=== PATIENT | male | born 1960 | race African-American/Black ===

== ENCOUNTER 2017-03-03 01:11 | Emergency (ER) | payer SELFPAY ==
[~2017-03-03] VITALS: Ht 185.4 cm; Wt 100.0 kg
[2017-03-03 01:14] VITALS: BP 160/104; PULSE 96; RESP 30; TEMP 98.3; O2SAT 97
[2017-03-03] MEDS ORDERED: SODIUM CHLORIDE 0.9% FLUSH 10 ML FLUSH IVF PRN (01:30)
[2017-03-03] MEDS ORDERED: NITROGLYCERIN 2% OINT 1 GM PACKET TOPICAL ONE (01:30)
[2017-03-03] MEDS: RESP: ALBUTEROL 2.5 MG/IPRATROPIUM 0.5 MG NEB (SCH) INH (01:43)
[2017-03-03 01:49] LABS: AUTOMATED NEUTROPHIL # 4.3 TH/MM3 (1.8-7.7); BASOPHIL # 0.1 TH/MM3 (0-0.2); BASOPHIL % 1.8 % (0.0-2.0); EOSINOPHIL # 0.1 TH/MM3 (0-0.4); EOSINOPHIL % 1.4 % (0.0-4.0); HEMATOCRIT 45.1 % (39.0-51.0); HEMO FLAGS DIFF FINAL; LYMPH % 36.4 % (9.0-44.0); LYMPHOCYTE # 2.9 TH/MM3 (1.0-4.8); MEAN CELL VOLUME 84.4 FL (80.0-100.0); MEAN CORPUSCULAR HEMOGLOBIN 27.2 PG (27.0-34.0); MEAN CORPUSCULAR HGB CONC 32.3 % (32.0-36.0); MONO % 7.5 % (0.0-8.0); NEUT % 52.9 % (16.0-70.0); PLATELET COUNT 297 TH/MM3 (150-450); RED BLOOD COUNT 5.35 MIL/MM3 (4.50-5.90)
--- NOTE | 2017-03-03 01:55 | RADRPT ---
EXAM DATE/TIME: 03/03/2017 01:39 [facility] COMPARISON: No previous studies available for comparison. INDICATIONS : Short of breath. MEDICAL HISTORY : None. SURGICAL HISTORY : None. ENCOUNTER: Initial ACUITY: 1 day PAIN SCORE: Non-responsive. LOCATION: Bilateral chest FINDINGS: A single view of the chest demonstrates the lungs to be symmetrically aerated without evidence of mas s, infiltrate or effusion. The cardiomediastinal contours are unremarkable. Osseous structures are intact. CONCLUSION: Normal examination. Nicholas Meyers Jr., MD on March 03, 2017 at 1:53 Board Certified Radiologist. This report was verified electronically.
[2017-03-03 02:09] LABS: APTT (PATIENT) 29.5 SEC (24.3-30.1); PROTHROMBIN TIME - PATIENT 11.4 SEC (9.8-11.6)
[2017-03-03 02:11] VITALS: RESP 16; O2SAT 97
[2017-03-03 02:13] VITALS: BP 160/104; PULSE 97; RESP 22; O2SAT 98
[2017-03-03 02:16] LABS: ALT (GPT) 24 U/L (12-78); ANION GAP 10 MEQ/L (5-15); AST (GOT) 23 U/L (15-37); BICARBONATE 23.1 MEQ/L (21.0-32.0); BLOOD UREA NITROGEN 7 MG/DL (7-18); CHLORIDE 107 MEQ/L (98-107); GLOMERULAR FILTRATION RATE 85 ML/MIN (>89); MAGNESIUM 2.4 MG/DL (1.5-2.5); POTASSIUM 3.7 MEQ/L (3.5-5.1); SODIUM (NA) 140 MEQ/L (136-145)
[2017-03-03 02:21] LABS: ALKALINE PHOSPHATASE 69 U/L (45-117); CREATINE KINASE 288 U/L (39-308); TOTAL BILIRUBIN ADULT 0.5 MG/DL (0.2-1.0)
[2017-03-03 02:33] LABS: CKMB 3.3 NG/ML (0.5-3.6)
--- NOTE | 2017-03-03 02:47 | PD ---
HPI Chief Complaint: Respiratory Symptoms Time Seen by Provider: 01:25 Travel History International Travel<30 days: No Contact w/Intl Traveler<30days: No Traveled to known affect area: No History of Present Illness HPI The patient is a 56 year old male who presents to the [facility] emergency department with a history of sudden onset of shortness of breath after he got off work this evening. He reports that prior to getting off of work he was cleaning the kitchen with ammonia products. The patient reports that he began to have chest tightness and shortness of breath. The patient reports that he does have a history of COPD and hypertension. He has not been on any hypertensive medications for the last 2 months. The patient reports that he has not seen his primary care physician for the last 8 months. The patient reports that he smokes one pack of cigarettes per day. He reports that he last used cocaine 4 days ago. Prior to arrival, the patient was noted to have a respiratory rate reportedly in the 50s to 60s with wheezing, tripoding, and accessory muscle use. The patient was noted to be hypertensive with a systolic blood pressure 210. The patient's O2 saturation on room air at that time was 98 -99%. The patient was given one sublingual nitroglycerin which made no difference to his chest pain according to ambulance services. The patient was given aspirin 162 mg by mouth 1, Solu-Medrol 125 mg IV, and 2 albuterol nebulizer treatments en route to this facility. Upon the patient's arrival, the patient is more relaxed and able to lie back. The patient has no accessory muscle use or conversational dyspnea on arrival. The patient reports having a cough productive of green sputum that has been going on for the last week. He reports that the cough makes the pain in his chest worse. The patient The patient denies any recent fevers, neck pain, abdominal pain, vomiting, diarrhea , urinary symptoms, or neurologic symptoms. [facility] Past Medical History Narrative Medical The patient's past medical history is significant for asthma, COPD, hypertension , polysubstance abuse. Asthma: Yes COPD: Yes Diminished Hearing: No Hypertension: Yes Tetanus Vaccination: Unknown Influenza Vaccination: No Past Surgical History Narrative Surgical The patient's past surgical history is reportedly none. Surgical History: No Previous Surgery Social History Alcohol Use: Yes (daily) Tobacco Use: Yes (one pack per day) Substance Use: Yes (cocaine occasionally) Allergies-Medications (Allergen,Severity, Reaction): Coded Allergies: No Known Allergies (Unverified , 03/03/17) Reported Meds & Prescriptions Reported Meds & Active Scripts Active Doxycycline Hyclate 100 Mg Cap 100 Mg PO BID Medrol Dosepak (Methylprednisolone) 4 Mg Dspk 4 Mg PO DIRECTED Per Pharmacist direction Proair Respiclick Inh (Albuterol Sulfate) 90 Mcg/Act Aerp 2 Puff INH Q4-6H PRN Review of Systems Except as stated in HPI: all other systems reviewed are Neg General / Constitutional: No: Fever Eyes: No: Visual changes HENT: No: Headaches Cardiovascular: Positive: Chest Pain or Discomfort (chest tight), Dyspnea on exertion Respiratory: Positive: Cough, Shortness of Breath, Wheezing Gastrointestinal: No: Abdominal Pain Genitourinary: No: Dysuria Musculoskeletal: No: Pain Skin: No Rash Neurologic: No: Weakness Psychiatric: No: Depression Endocrine: No: Polydipsia Hematologic/Lymphatic: No: Easy Bruising Physical Exam Narrative General: The patient is a well-developed well-nourished male in no acute distress. Head and Neck exam: Head is normocephalic atraumatic. Eyes: EOMI, pupils are equal round and reactive to light. Nose: Midline septum with pink mucous membranes Mouth: Dentition unremarkable. Moist mucus membranes. Posterior oropharynx is not erythematous. No tonsillar hypertrophy. Uvula midline. Airway patent. Neck: No palpable lymphadenopathy. No nuchal rigidity. No thyromegaly. Cardiovascular: Sinus tachycardia in the low 100s without murmurs, gallops, or rubs. No pulse deficit to the extremities and simultaneous auscultation and palpation of his radial artery. Lungs: Soft expiratory wheezes are audible in bilateral lung hou, no rhonchi, no crackles. Abdomen: Soft, with reported tenderness on palpation of all 4 quadrants of the abdomen to the slightest touch. He reports that the abdominal pain seems to be related to his coughing. No guarding, rebound, or rigidity. Normal bowel sounds are audible. No tenderness on palpation of McBurney's point. Extremities: No clubbing, cyanosis, or edema. 2+ pulses in all 4 extremities. No calf tenderness on palpation. Back: No costovertebral angle tenderness to palpation. Neurologic Exam: Grossly nonfocal. Skin Exam: No rash noted. Intact skin that is warm and dry. Data Data Last Documented VS Vital Signs Date Time Temp Pulse Resp B/P Pulse Ox O2 Delivery O2 Flow Rate FiO2 03/03/17 02:13 97 22 160/104 98 Aerosol Mask 8 03/03/17 01:14 98.3 Orders Complete Blood Count With Diff (03/03/17:) Comprehensive Metabolic Panel (03/03/17) B-Type Natriuretic Peptide (03/03/17) Act Partial Throm Time (Ptt) (03/03/17) Prothrombin Time / Inr (Pt) (03/03/17) Magnesium (Mg) (03/03/17) Ckmb (Isoenzyme) Profile (03/03/17) Troponin I (03/03/17) Iv Access Insert/Monitor (03/03/17) Electrocardiogram (03/03/17) Ecg Monitoring (03/03/17) Oximetry (03/03/17) Oxygen Administration (03/03/17) Chest, Single Ap (03/03/17:) Sodium Chloride 0.9% Flush (Ns Flush) (03/03/17 01:30) Albuterol-Ipratropium Neb (Duoneb Neb) (03/03/17 01:30) Nitroglycerin 2% Oint (Nitroglycerin 2% (03/03/17 01:30) CKMB (03/03/17 01:40) CKMB% (03/03/17 01:40) Ct Abd/Pel W Iv Contrast(Rout) (03/03/17 02:56) Iohexol 350 Inj (Omnipaque 350 Inj) (03/03/17 04:26) Levofloxacin (Levaquin) (03/03/17 04:45) Labs Laboratory Tests Test 03/03/17 01:40 White Blood Count 8.0 TH/MM3 Red Blood Count 5.35 MIL/MM3 Hemoglobin 14.6 GM/DL Hematocrit 45.1 % Mean Corpuscular Volume 84.4 FL Mean Corpuscular Hemoglobin 27.2 PG Mean Corpuscular Hemoglobin 32.3 % Concent Red Cell Distribution Width 15.0 % Platelet Count 297 TH/MM3 Mean Platelet Volume 8.6 FL Neutrophils (%) (Auto) 52.9 % Lymphocytes (%) (Auto) 36.4 % Monocytes (%) (Auto) 7.5 % Eosinophils (%) (Auto) 1.4 % Basophils (%) (Auto) 1.8 % Neutrophils # (Auto) 4.3 TH/MM3 Lymphocytes # (Auto) 2.9 TH/MM3 Monocytes # (Auto) 0.6 TH/MM3 Eosinophils # (Auto) 0.1 TH/MM3 Basophils # (Auto) 0.1 TH/MM3 CBC Comment DIFF FINAL Differential Comment Prothrombin Time 11.4 SEC Prothromb Time International 1.0 RATIO Ratio Activated Partial 29.5 SEC Thromboplast Time Sodium Level 140 MEQ/L Potassium Level 3.7 MEQ/L Chloride Level 107 MEQ/L Carbon Dioxide Level 23.1 MEQ/L Anion Gap 10 MEQ/L Blood Urea Nitrogen 7 MG/DL Creatinine 1.09 MG/DL Estimat Glomerular Filtration 85 ML/MIN Rate Random Glucose 130 MG/DL Calcium Level 8.8 MG/DL Magnesium Level 2.4 MG/DL Total Bilirubin 0.5 MG/DL Aspartate Amino Transf 23 U/L (AST/SGOT) Alanine Aminotransferase 24 U/L (ALT/SGPT) Alkaline Phosphatase 69 U/L Total Creatine Kinase 288 U/L Creatine Kinase MB 3.3 NG/ML Troponin I LESS THAN 0.02 NG/ML B-Type Natriuretic Peptide 23 PG/ML Total Protein 7.4 GM/DL Albumin 3.8 GM/DL MDM Medical Decision Making Medical Screen Exam Complete: Yes Emergency Medical Condition: Yes Medical Record Reviewed: Yes Interpretation(s) Last Impressions Abdomen/Pelvis CT 03/03/17 0256 Signed Impressions: Service Date/Time: Friday, March 03, 2017 04:12 - CONCLUSION: Normal examination. Nicholas Meyers Jr., MD Chest X-Ray 03/03/17 0126 Signed Impressions: Service Date/Time: Friday, March 03, 2017 01:39 - CONCLUSION: Normal examination. Nicholas Meyers Jr., MD Differential Diagnosis COPD exacerbation, versus pneumonia, versus pneumothorax, versus acute coronary syndrome, versus new-onset congestive heart failure Narrative Course During the course of the patients emergency department visit, the patients history, examination, and differential diagnosis were reviewed with the patient. The patient had IV access obtained and blood work sent for analysis. The patient was placed on a ply cutter with oximetry and blood pressure monitoring. An EKG was done on arrival. The patient's EKG shows a sinus rhythm heart rate of 99, no acute ST segment elevation or depression. QRS duration is 94 ms, QTC 402 ms. The patient was initially provided nitroglycerin 1 inch the chest wall. The patient was given DuoNeb 3. The patient was given Levaquin 500 mg by mouth 1. The patients laboratory studies were reviewed and remarkable for a CBC that is within normal limits, CMP is remarkable for glucose of 130, cardiac enzymes are unremarkable, BNP is 23, PT PTT unremarkable Radiology studies were reviewed and remarkable for a chest x-ray that shows no acute abnormality. CT scan of the abdomen and pelvis shows no acute abnormality. The patient on reexamination is sleeping soundly. The Patient's O2 saturation on room air is 98-99%. The patient's repeat blood pressure is 148 systolic. The patient is encouraged to follow up with his primary care physician, to call for an appointment tomorrow. He cannot recall the name of his blood pressure medication, therefore he is instructed to make sure he follows up soon to get his blood pressure medications filled. The patient is also encouraged to avoid cocaine use and quit smoking. The patient was given a prescription for pro-air inhaler, Medrol Dosepak taper, doxycycline. The patient is resting comfortably and feels better, is alert and in no distress. The patients results and examination findings were discussed with the patient. The repeat examination is unremarkable and benign. The history, exam, diagnostic testing, and current condition do not suggest any significant pathology to warrant further testing, continued ED treatment, admission, or surgical evaluation at this point. The vital signs have been stable. The patient does not have uncontrollable pain, intractable vomiting, or other significant symptoms. The patient's condition is stable and appropriate for discharge. The patient will pursue further outpatient evaluation with a primary care physician or other designated or consulting physician as indicated in the discharge instructions. The patient expressed understanding and was agreeable with this plan. Diagnosis Primary Impression: COPD exacerbation Additional Impression: Bronchitis Referrals: Primary Care Physician 1 day Patient Instructions: Acute Bronchitis (ED), COPD (Chronic Obstructive Pulmonary Disease) (ED), General Instructions, How to Stop Smoking (ED) Med/Other Pt SpecificInfo: Prescription(s) given Scripts Doxycycline Hyclate 100 Mg [id number] Mg PO BID #20 CAP Ref 0 Prov:Brittany Quezada MD 03/03/17 Methylprednisolone Dosepak (Medrol Dosepak)4 Mg Dspk4 Mg PO DIRECTED #1 DSPK Ref 0 Per Pharmacist direction Prov:Brittany Quezada MD 03/03/17 Albuterol Powder Inh (Proair Respiclick Inh)90 Mcg/Act Aerp2 Puff INH Q4-6H PRN (SHORTNESS OF BREATH) #1 INHALER Ref 0 Prov:Brittany Quezada MD 03/03/17 Disposition: 01 DISCHARGE HOME Condition: Stable Brittany Quezada MD March 03, 2017 02:47
[2017-03-03] MEDS ORDERED: IOHEXOL 350 MG/ML 10 ML VIAL (for RAD DIAG) IV ONE (04:26)
--- NOTE | 2017-03-03 04:31 | RADRPT ---
EXAM DATE/TIME: 03/03/2017 04:12 [facility] COMPARISON: No previous studies available for comparison. INDICATIONS : Right lower quadrant pain. IV CONTRAST: 92 cc Omnipaque 350 (iohexol) IV ORAL CONTRAST: No oral contrast ingested. RADIATION DOSE: 9.96 CTDIvol (mGy) MEDICAL HISTORY : Hypertension. Chronic obstructive pulmonary disease. SURGICAL HISTORY : None. ENCOUNTER: Initial ACUITY: 1 day PAIN SCALE: 6/10 LOCATION: Right lower quadrant TECHNIQUE: Volumetric scanning of the abdomen and pelvis was performed. Using automated exposure control and ad justment of the mA and/or kV according to patient size, radiation dose was kept as low as reasonably achievable to obtain optimal diagnostic quality images. FINDINGS: LOWER LUNGS: The visualized lower lungs are clear. LIVER: Homogeneous density without lesion. A tiny cyst is seen involving the right lobe near the dome of the diaphragm. There is no dilation of the biliary tree. No calcified gallstones. SPLEEN: Normal size without lesion. PANCREAS: Within normal limits. KIDNEYS: Normal in size and shape. There is no mass, stone or hydronephrosis. ADRENAL GLANDS: Within normal limits. VASCULAR: There is no aortic aneurysm. BOWEL/MESENTERY: The stomach, small bowel, and colon demonstrate no acute abnormality. There is no free intraperitone al air or fluid. ABDOMINAL WALL: Within normal limits. RETROPERITONEUM: There is no lymphadenopathy. BLADDER: No wall thickening or mass. REPRODUCTIVE: Within normal limits. INGUINAL: There is no lymphadenopathy or hernia. MUSCULOSKELETAL: Within normal limits for patient age. CONCLUSION: Normal examination. Nicholas Meyers Jr., MD on March 03, 2017 at 4:27 Board Certified Radiologist. This report was verified electronically.
[2017-03-03] MEDS ORDERED: ALBU1AER5 INH (04:45)
[2017-03-03] MEDS ORDERED: LEVOFLOXACIN 500 MG TAB PO ONE (04:45)
[2017-03-03] MEDS ORDERED: MEDR4PAK PO (04:45)
[2017-03-03] MEDS ORDERED: DOXY100C PO (04:45)
--- NOTE | 2017-03-03 19:44 | EKG ---
Date Performed: 03/03/2017 Time Performed: 01:09:47 PTAGE: 56 years EKG: SINUS TACHYCARDIA ABNORMAL RHYTHM ECG PREVIOUS TRACING : 03/02/2017 22.13 DOCTOR: Chelsy Bass Interpretating Date/Time 03/03/2017 19:42:53
== END 2017-03-03 05:24 | disposition home or self-care (01) ==
LOC: NEPE 01:11
DX: J44.1 Chronic obstructive pulmonary disease with (acute) exacerbation (principal); J45.909 Unspecified asthma, uncomplicated; I10 Essential (primary) hypertension; F17.210 Nicotine dependence, cigarettes, uncomplicated; R00.0 Tachycardia, unspecified
CPT/HCPCS: 71010; 74177; 80053; 82550; 82552; 83735; 83880; 84484; 85025; 85610; 85730; 93005; 94640; 94664; 99285; Q9967

== ENCOUNTER 2017-05-15 14:30 | Emergency (ER) | payer OTHER ==
[~2017-05-15 14:30] MED LIST: ALBU1AER5 INH; DOXY100C PO; MEDR4PAK PO
[2017-05-15] MEDS ORDERED: SODIUM CHLORIDE 0.9% FLUSH 10 ML FLUSH IVF PRN (14:45)
[2017-05-15] MEDS ORDERED: SODIUM CHLOR 0.9% 1000 ML INJ 1,000 ML IV SCH (14:46)
[2017-05-15] MEDS ORDERED: LORazepam 2 MG/ML VIAL IV PUSH ONE (15:00)
--- NOTE | 2017-05-15 15:00 | PD ---
HPI Chief Complaint: Psychiatric Symptoms Time Seen by Provider: 14:56 Travel History International Travel<30 days: No Contact w/Intl Traveler<30days: No Traveled to known affect area: No History of Present Illness HPI 57-year-old male that presents to the ED for evaluation of chest pain and psychiatric illness. Patient was brought here by ambulance for violation of this. Patient states that he has a history of heart disease as well as COPD. Per patient he smokes every day. Per patient today he drank a lot of alcohol about 12 beers as well as smoking crack because he "wanted to kill himself ". Per patient he does smoke cocaine as well as cigarettes. He states that he did this intentionally to hurt himself. Per patient he has no history of high cholesterol has a history of hypertension. Takes no medications. He was given aspirin and nitroglycerin by ED back. Patient states that he feels short of breath and has chest discomfort. Per patient he feels very anxious. He has no psychiatrist. History of depression in the past. Patient apparently was walking in the street and got into a book store where he had them call 911. He has no allergies to medication. No other medical issues. He has been here before for COPD but never for chest pain. PFSH Past Medical History Asthma: Yes COPD: Yes Diminished Hearing: No Hypertension: Yes Social History Alcohol Use: Yes (daily) Tobacco Use: Yes (one pack per day) Substance Use: Yes (cocaine occasionally) Allergies-Medications (Allergen,Severity, Reaction): Coded Allergies: No Known Allergies (Unverified , 05/15/17) Reported Meds & Prescriptions Reported Meds & Active Scripts Active Doxycycline Hyclate 100 Mg Cap 100 Mg PO BID Medrol Dosepak (Methylprednisolone) 4 Mg Dspk 4 Mg PO DIRECTED Per Pharmacist direction Proair Respiclick Inh (Albuterol Sulfate) 90 Mcg/Act Aerp 2 Puff INH Q4-6H PRN Review of Systems Except as stated in HPI: all other systems reviewed are Neg Physical Exam Narrative GENERAL: SKIN: Warm and dry. HEAD: Atraumatic. Normocephalic. EYES: Pupils equal and round. No scleral icterus. No injection or drainage. ENT: No nasal bleeding or discharge. Mucous membranes pink and moist. Tongue is midline. No uvula deviation. NECK: Trachea midline. No JVD. CARDIOVASCULAR: Regular rate and rhythm. No murmurs, S3, S4. Chest pain is reproducible with touch. RESPIRATORY: No accessory muscle use. Clear to auscultation. Breath sounds equal bilaterally. GASTROINTESTINAL: Abdomen soft, non-tender, nondistended. Hepatic and splenic margins not palpable. MUSCULOSKELETAL: Extremities without clubbing, cyanosis, or edema. No obvious deformities. Full range of motion of the upper and lower extremities bilaterally. 2+ pulses bilaterally. NEUROLOGICAL: Awake and alert. No obvious cranial nerve deficits. Motor grossly within normal limits. Five out of 5 muscle strength in the arms and legs. Normal speech. PSYCHIATRIC: Appropriate mood and affect; insight and judgment normal. Data Data Last Documented VS Vital Signs Date Time Temp Pulse Resp B/P Pulse Ox O2 Delivery O2 Flow Rate FiO2 05/15/17 16:36 110 18 161/89 97 Nasal Cannula 2 05/15/17 16:36 98.2 Orders Electrocardiogram (05/15/17 14:43) Ckmb (Isoenzyme) Profile (05/15/17 14:43) Complete Blood Count With Diff (05/15/17 14:43) Magnesium (Mg) (05/15/17 14:43) Prothrombin Time / Inr (Pt) (05/15/17 14:43) Act Partial Throm Time (Ptt) (05/15/17 14:43) Troponin I (05/15/17 14:43) Lipase (05/15/17 14:43) Chest, Single Ap (05/15/17 14:43) Ecg Monitoring (05/15/17 14:43) Bilateral Bp Monitoring (05/15/17 14:43) Iv Access Insert/Monitor (05/15/17 14:43) Oximetry (05/15/17 14:43) Oxygen Administration (05/15/17 14:43) Sodium Chloride 0.9% Flush (Ns Flush) (05/15/17 14:45) Thyroid Stimulating Hormone (05/15/17 14:43) Psych Screen (05/15/17 14:43) Drug Screen, Random Urine (05/15/17 14:43) Alcohol (Ethanol) (05/15/17 14:43) Salicylates (Aspirin) (05/15/17 14:43) Tylenol (Acetaminophen) (05/15/17 14:43) Lorazepam Inj (Ativan Inj) (05/15/17 15:00) Sodium Chlor 0.9% 1000 Ml Inj (Ns 1000 M (05/15/17 14:46) ^ Sitter (05/15/17 16:31) Comprehensive Metabolic Panel (05/15/17 15:35) CKMB (05/15/17 15:35) CKMB% (05/15/17 15:35) Labs Laboratory Tests Test 05/15/17 05/15/17 15:20 15:35 Urine Opiates Screen NEG Urine Barbiturates Screen NEG Urine Amphetamines Screen NEG Urine Benzodiazepines Screen NEG Urine Cocaine Screen POS Urine Cannabinoids Screen NEG White Blood Count 9.1 TH/MM3 Red Blood Count 5.31 MIL/MM3 Hemoglobin 15.4 GM/DL Hematocrit 45.1 % Mean Corpuscular Volume 84.9 FL Mean Corpuscular Hemoglobin 29.0 PG Mean Corpuscular Hemoglobin 34.1 % Concent Red Cell Distribution Width 15.7 % Platelet Count 267 TH/MM3 Mean Platelet Volume 8.5 FL Neutrophils (%) (Auto) 66.6 % Lymphocytes (%) (Auto) 28.1 % Monocytes (%) (Auto) 4.0 % Eosinophils (%) (Auto) 0.6 % Basophils (%) (Auto) 0.7 % Neutrophils # (Auto) 6.1 TH/MM3 Lymphocytes # (Auto) 2.6 TH/MM3 Monocytes # (Auto) 0.4 TH/MM3 Eosinophils # (Auto) 0.1 TH/MM3 Basophils # (Auto) 0.1 TH/MM3 CBC Comment DIFF FINAL Differential Comment Prothrombin Time 11.2 SEC Prothromb Time International 1.0 RATIO Ratio Activated Partial 30.3 SEC Thromboplast Time Sodium Level 139 MEQ/L Potassium Level 3.6 MEQ/L Chloride Level 104 MEQ/L Carbon Dioxide Level 21.0 MEQ/L Anion Gap 14 MEQ/L Blood Urea Nitrogen 8 MG/DL Creatinine 1.02 MG/DL Estimat Glomerular Filtration 92 ML/MIN Rate Random Glucose 86 MG/DL Calcium Level 8.9 MG/DL Magnesium Level 2.5 MG/DL Total Bilirubin 0.6 MG/DL Aspartate Amino Transf 17 U/L (AST/SGOT) Alanine Aminotransferase 21 U/L (ALT/SGPT) Alkaline Phosphatase 76 U/L Total Creatine Kinase 248 U/L Troponin I LESS THAN 0.02 NG/ML Total Protein 8.3 GM/DL Albumin 4.0 GM/DL Lipase 155 U/L Thyroid Stimulating Hormone 1.500 uIU/ML 3rd Gen Salicylates Level 6.0 MG/DL Acetaminophen Level LESS THAN 2.0 MCG/ML Ethyl Alcohol Level 123 MG/DL MDM Medical Decision Making Medical Screen Exam Complete: Yes Emergency Medical Condition: Yes Medical Record Reviewed: Yes Interpretation(s) CBC & BMP Diagram 05/15/17 15:35 troponin and CKMB negative EKG shows sinus rhythm with no sign of acute ischemia or arrythmia read by me and attending Last Impressions Chest X-Ray 05/15/17 1443 Signed Impressions: Service Date/Time: Wednesday, May 15, 2017 14:40 - CONCLUSION: No acute disease. Srini Simpson MD LFTS WNL alcohol in the 100s, tox positive for cocaine Differential Diagnosis Chest pain versus atypical chest pain versus COPD versus bronchitis versus costochondritis versus substance abuse versusDepression versus suicidal ideation versus anxiety versus adjustment disorder versus mood disorder versus bipolar disorder versus schizophrenia versus paranoid disorder versus psychosis versus substance abuse versus alcohol abuse versus alcohol induced psychosis versus homicidality addition versus cutting versus personality disorder Narrative Course 57-year-old male that presents to the ED for evaluation of psych pain. Patient was properly examined and was found to have signs and symptoms consistent appears to be chest discomfort likely substance abuse. He states that he try to kill himself with crack cocaine and alcohol. Initial EKG did not show no sign of acute ischemia or arrhythmia. 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 Case was discussed with my attending who agrees with plan. Labs were drawn. Chest x-ray was done. Patient was given Ativan to help with his anxiety as well as fluids to help with his intoxication. Chest pain is reproducible with touch that this appears to be more a typical. Because patient stated that he did this because he wanted to kill himself patient will be [place] acted for his own safety. Labs and imaging showed positive for cocaine as well as alcohol. Otherwise unremarkable exam. Case was discussed in my attending who agrees the patient can be medically clear. Chest pain likely secondary to the substance abuse. Vitals have been stable. Patient at this time continues to state that he wants to hurt himself. [place] act already in place. Patient will be medically clear. Okay to be seen by psych. Mental health screening was discussed with the patient. Diagnosis Primary Impression: Suicidal ideation Additional Impressions: Chest pain in adult Polysubstance abuse Jagdish Rueda May 15, 2017 15:00
--- NOTE | 2017-05-15 15:05 | RADRPT ---
EXAM DATE/TIME: 05/15/2017 14:40 [facility] COMPARISON: CHEST SINGLE AP, March 03, 2017, 1:39. INDICATIONS : Shortness of breath. MEDICAL HISTORY : None. SURGICAL HISTORY : None. ENCOUNTER: Initial ACUITY: 1 day PAIN SCORE: 6/10 LOCATION: Bilateral chest FINDINGS: A single view of the chest demonstrates the lungs to be symmetrically aerated without evidence of mas s, infiltrate or effusion. The cardiomediastinal contours are unremarkable. Osseous structures are intact. CONCLUSION: No acute disease. Srini Simpson MD on May 15, 2017 at 15:03 Board Certified Radiologist. This report was verified electronically.
[2017-05-15 15:25] VITALS: BP 161/89; PULSE 110; RESP 20; TEMP 98.1; O2SAT 97
[2017-05-15 16:31] LABS: AUTOMATED NEUTROPHIL # 6.1 TH/MM3 (1.8-7.7); BASOPHIL # 0.1 TH/MM3 (0-0.2); BASOPHIL % 0.7 % (0.0-2.0); EOSINOPHIL # 0.1 TH/MM3 (0-0.4); EOSINOPHIL % 0.6 % (0.0-4.0); HEMATOCRIT 45.1 % (39.0-51.0); HEMO FLAGS DIFF FINAL; LYMPH % 28.1 % (9.0-44.0); LYMPHOCYTE # 2.6 TH/MM3 (1.0-4.8); MEAN CELL VOLUME 84.9 FL (80.0-100.0); MEAN CORPUSCULAR HGB CONC 34.1 % (32.0-36.0); NEUT % 66.6 % (16.0-70.0); PLATELET COUNT 267 TH/MM3 (150-450); RED BLOOD COUNT 5.31 MIL/MM3 (4.50-5.90); RED CELL DISTRIBUTION WIDTH 15.7 % (11.6-17.2); WHITE BLOOD COUNT 9.1 TH/MM3 (4.0-11.0)
[2017-05-15 16:36] VITALS: BP 161/89; PULSE 110; RESP 18; TEMP 98.2; O2SAT 97
[2017-05-15 16:44] LABS: APTT (PATIENT) 30.3 SEC (24.3-30.1); PROTHROMBIN TIME - PATIENT 11.2 SEC (9.8-11.6)
[2017-05-15 16:57] LABS: AMPHETAMINE, URINE NEG (NEG); BARBITURATES, URINE NEG (NEG); COCAINE, URINE POS (NEG)
[2017-05-15 17:02] LABS: ALT (GPT) 21 U/L (12-78); ANION GAP 14 MEQ/L (5-15); AST (GOT) 17 U/L (15-37); BLOOD UREA NITROGEN 8 MG/DL (7-18); CHLORIDE 104 MEQ/L (98-107); GLOMERULAR FILTRATION RATE 92 ML/MIN (>89); MAGNESIUM 2.5 MG/DL (1.5-2.5); POTASSIUM 3.6 MEQ/L (3.5-5.1); SODIUM (NA) 139 MEQ/L (136-145)
[2017-05-15 17:10] LABS: ALKALINE PHOSPHATASE 76 U/L (45-117); CREATINE KINASE 248 U/L (39-308); TOTAL BILIRUBIN ADULT 0.6 MG/DL (0.2-1.0)
[2017-05-15 17:17] LABS: ACETAMINOPHEN LESS THAN 2.0 MCG/ML (10.0-30.0)
[2017-05-15 17:29] LABS: CKMB 3.2 NG/ML (0.5-3.6)
[2017-05-15 18:41] VITALS: BP 161/97; PULSE 91; RESP 18; TEMP 97.3; O2SAT 96
[2017-05-15 22:47] VITALS: BP_SYST 146; BP_DIAS 7; BP_DIAS 74; PULSE 95; RESP 18
[2017-05-16 02:04] VITALS: BP 164/90; PULSE 83; RESP 18
[2017-05-16 06:01] VITALS: BP 169/96; PULSE 79; RESP 18
--- NOTE | 2017-05-16 09:47 | PD ---
History of Present Illness Chief Complaint: Psychiatric Symptoms Time Seen by Provider: 09:20 Travel History International Travel<30 Days: No Contact w/Intl Traveler<30days: No Known affected area: No Legal Status Legal Status: [place] Comment: INTITIATED BY: DR VIRGIE MD IN ED ON 05/15/17 @1505 History of Present Illness: History of Present Illness 57-year-old male with a history of substance use disorder and a self reported hx of depression who presents to the ED on a voluntary basis for evaluation of chest pain and psychiatric illness. The patient was later placed under a BA by ED provider, Dr. Gardner. Per patient today he drank a lot of alcohol about 12 beers as well as smoking crack because he "wanted to kill himself ". In actuality he reports a long history of substance use with having had a relapse 5 months ago. He reports he is having financial stressors at this time and he ' may have been asked to leave the hotel where he was living because he has not paid the rent". EMR is reviewed . No previous contact with [facility] psychiatry dept . BAL on presentation to ED is 123. Positive toxicology for cocaine. The patient was monitored in J pod overnight and he presented no behavioral concerns and no suicidality. Slept well and ate well. Patient is seen in J pod. He is awake, alert and oriented. He is vague in his responses. Appears stated age and is maintaining basic hygiene. Speech is clear and logical. There is no psychosis and no nery. I cannot elicit any delusional beliefs. He describes his mood as depressed. No vegetative symptoms reported or observed. He states that he is experiencing stress related to " not being able to pay my bills". In terms of psychiatric history he reports that he received treatment "at a center in [place]' and last received treatment one year ago. He does not provide any details regarding past medications. In terms of substance use he reports that he relapsed and has been using cocaine for the past 5 moths. He received substance abuse treatment 2 years ago and was "at a program. I don't remember the name. I was there for 6 months". PFSH Past Medical History Asthma: Yes COPD: Yes Diminished Hearing: No Hypertension: Yes ?: Not Psychiatric History Psychiatric History Hx Psychiatric Treatment: Outpatietn in [place]. Last received tretament 1 year ago. History of Inpatient Treatment: Yes Guns or firearms in home: No Social History Never male who was living in a hotel room. Works as a cook . Has 2 daughters. Hx Alcohol Use: Yes (daily) Hx Tobacco Use: Yes (one pack per day) Hx Substance Use: Yes (cocaine occasionally) Substance Use Type: Alcohol, Crack, Cocaine Hx of Substance Use Treatment: Yes (2 years ago in [place]) Family Psychiatric History None reported Allergies-Medications (Allergen,Severity, Reaction): Coded Allergies: No Known Allergies (Unverified , 05/15/17) Reported Meds & Prescriptions Reported Meds & Active Scripts Active Doxycycline Hyclate 100 Mg Cap 100 Mg PO BID Medrol Dosepak (Methylprednisolone) 4 Mg Dspk 4 Mg PO DIRECTED Per Pharmacist direction Proair Respiclick Inh (Albuterol Sulfate) 90 Mcg/Act Aerp 2 Puff INH Q4-6H PRN Review of Systems Except as stated in HPI: all other systems reviewed are Neg Exam Alert: Yes Jackson: Person (ox4) Mood: Calm Affect: Appropriate Speech: Clear, Logical Eye Contact: Normal Hallucinations: Other (Negative) Delusions: No Suicidal: Ideation (negative) Homicidal: Ideation (negative) Insight/Judgement Poor. poor MDM Medical Decision Making Medical Record Reviewed: Yes Assessment/Plan 57-year-old male with a history of substance use disorder and a self reported hx of depression who presents to the ED on a voluntary basis for evaluation of chest pain and psychiatric illness. The patient was later placed under a BA by ED provider, Dr. Gardner. Per patient today he drank a lot of alcohol about 12 beers as well as smoking crack because he "wanted to kill himself ". His BAL was 123 and positive toxicology for cocaine. The patient was monitored in secure environment and presented no behavioral concerns and no suicidality. I suspect that he may find himself homeless at this time and is malingering his symptoms to obtain prison. I also suspect possible antisocial traits in this patient which will in part explain his maladaptive behaviors. Patient at this time does not meet BA criteria and may be better served in a substance abuse treatment facility. He is provided with information regarding [facility] and he agrees to seek treatment there. BA cleared. Seek treatment at [facility]. Orders Electrocardiogram (05/15/17 14:43) Ckmb (Isoenzyme) Profile (05/15/17 14:43) Complete Blood Count With Diff (05/15/17 14:43) Magnesium (Mg) (05/15/17 14:43) Prothrombin Time / Inr (Pt) (05/15/17 14:43) Act Partial Throm Time (Ptt) (05/15/17 14:43) Troponin I (05/15/17 14:43) Lipase (05/15/17 14:43) Chest, Single Ap (05/15/17 14:43) Ecg Monitoring (05/15/17 14:43) Bilateral Bp Monitoring (05/15/17 14:43) Iv Access Insert/Monitor (05/15/17 14:43) Oximetry (05/15/17 14:43) Oxygen Administration (05/15/17 14:43) Sodium Chloride 0.9% Flush (Ns Flush) (05/15/17 14:45) Thyroid Stimulating Hormone (05/15/17 14:43) Psych Screen (05/15/17 14:43) Drug Screen, Random Urine (05/15/17 14:43) Alcohol (Ethanol) (05/15/17 14:43) Salicylates (Aspirin) (05/15/17 14:43) Tylenol (Acetaminophen) (05/15/17 14:43) Lorazepam Inj (Ativan Inj) (05/15/17 15:00) Sodium Chlor 0.9% 1000 Ml Inj (Ns 1000 M (05/15/17 14:46) ^ Sitter (05/15/17 16:31) Comprehensive Metabolic Panel (05/15/17 15:35) CKMB (05/15/17 15:35) CKMB% (05/15/17 15:35) Diet Regular Basic (05/16/17 Breakfast) Results Vital Signs Date Time Temp Pulse Resp B/P Pulse Ox O2 Delivery O2 Flow Rate FiO2 05/16/17 06:01 79 18 169/96 05/16/17 02:04 83 18 164/90 05/15/17 22:47 95 18 146/74 05/15/17 18:41 97.3 91 18 161/97 96 Room Air 05/15/17 16:36 110 18 161/89 97 Nasal Cannula 2 05/15/17 16:36 110 20 05/15/17 16:36 98.2 110 18 161/89 97 Nasal Cannula 2 05/15/17 16:36 97 Nasal Cannula 2 05/15/17 15:25 98.1 110 20 161/89 97 Laboratory Tests Test 05/15/17 05/15/17 15:20 15:35 Urine Opiates Screen NEG Urine Barbiturates Screen NEG Urine Amphetamines Screen NEG Urine Benzodiazepines Screen NEG Urine Cocaine Screen POS Urine Cannabinoids Screen NEG White Blood Count 9.1 Red Blood Count 5.31 Hemoglobin 15.4 Hematocrit 45.1 Mean Corpuscular Volume 84.9 Mean Corpuscular Hemoglobin 29.0 Mean Corpuscular Hemoglobin 34.1 Concent Red Cell Distribution Width 15.7 Platelet Count 267 Mean Platelet Volume 8.5 Neutrophils (%) (Auto) 66.6 Lymphocytes (%) (Auto) 28.1 Monocytes (%) (Auto) 4.0 Eosinophils (%) (Auto) 0.6 Basophils (%) (Auto) 0.7 Neutrophils # (Auto) 6.1 Lymphocytes # (Auto) 2.6 Monocytes # (Auto) 0.4 Eosinophils # (Auto) 0.1 Basophils # (Auto) 0.1 CBC Comment DIFF FINAL Differential Comment Prothrombin Time 11.2 Prothromb Time International 1.0 Ratio Activated Partial 30.3 Thromboplast Time Sodium Level 139 Potassium Level 3.6 Chloride Level 104 Carbon Dioxide Level 21.0 Anion Gap 14 Blood Urea Nitrogen 8 Creatinine 1.02 Estimat Glomerular Filtration 92 Rate Random Glucose 86 Calcium Level 8.9 Magnesium Level 2.5 Total Bilirubin 0.6 Aspartate Amino Transf 17 (AST/SGOT) Alanine Aminotransferase 21 (ALT/SGPT) Alkaline Phosphatase 76 Total Creatine Kinase 248 Creatine Kinase MB 3.2 Troponin I LESS THAN 0.02 Total Protein 8.3 Albumin 4.0 Lipase 155 Thyroid Stimulating Hormone 1.500 3rd Gen Salicylates Level 6.0 Acetaminophen Level LESS THAN 2.0 Ethyl Alcohol Level 123 Diagnosis Primary Impression: Chest pain in adult Additional Impressions: Polysubstance abuse Cocaine abuse Ruled Out: Suicidal ideation Psychiatrically Cleared: Yes Med/ Other Pt Specific Info: No Meds Exist/No RX given Disposition: 01 DISCHARGE HOME Condition: Stable Problem Qualifiers Lupe Reynolds May 16, 2017 09:47
[2017-05-16 09:52] VITALS: BP 169/96
--- NOTE | 2017-05-16 18:29 | EKG ---
Date Performed: 05/15/2017 Time Performed: 14:45:11 PTAGE: 57 years EKG: SINUS TACHYCARDIA MINIMAL VOLTAGE CRITERIA FOR LVH, CONSIDER NORMAL VARIANT NONSPECIFIC T-W AVE ABNORMALITY ABNORMAL RHYTHM ECG PREVIOUS TRACING 03/03/2017 @ ..47 Compared to prior tracing no significant change DOCTOR: Checo Allison Interpretating Date/Time 05/16/2017 18:27:59
== END 2017-05-16 10:11 | disposition home or self-care (01) ==
LOC: NEPE 14:30 → NEPJ 05-16 10:11
DX: R07.9 Chest pain, unspecified (principal); F14.10 Cocaine abuse, uncomplicated; F19.10 Other psychoactive substance abuse, uncomplicated; R00.0 Tachycardia, unspecified; J44.9 Chronic obstructive pulmonary disease, unspecified; J45.909 Unspecified asthma, uncomplicated; I10 Essential (primary) hypertension; F17.210 Nicotine dependence, cigarettes, uncomplicated
CPT/HCPCS: 71010; 80053; 80307; 82550; 82552; 83690; 83735; 84443; 84484; 85025; 85610; 85730; 93005; 96361; 96374; 99285; J2060; J7030

== ENCOUNTER 2017-05-16 10:51 | Emergency (ER) | payer SELFPAY ==
[~2017-05-16] VITALS: Ht 165.1 cm; Wt 91.0 kg
--- NOTE | 2017-05-16 11:05 | PD ---
HPI Chief Complaint: psych eval Time Seen by Provider: 11:05 Travel History International Travel<30 days: No Contact w/Intl Traveler<30days: No History of Present Illness HPI 57-year-old male presents to the emergency department for suicidal ideation. Patient was discharged this morning after being seen for the same. He apparently went outside the hospital and use a box blank machine operator and attempted to cut his wrist. The patient was found and brought back to the emergency department. The patient states that he is suicidal and does not want to live. He reports history of bipolar disorder, but is not currently on any medications. The patient denies any homicidal ideations. He states that he hears voices and has hallucinations. He states the voices tell him to kill himself. The patient states that he attempted to "drink myself to " yesterday. Patient has no medical complaints other than lacerations to his bilateral wrist. PFSH Past Medical History Asthma: Yes COPD: Yes Diminished Hearing: No Hypertension: Yes Social History Alcohol Use: Yes (daily) Tobacco Use: Yes (one pack per day) Substance Use: Yes (cocaine occasionally) Allergies-Medications (Allergen,Severity, Reaction): Coded Allergies: No Known Allergies (Unverified , 05/15/17) Reported Meds & Prescriptions Reported Meds & Active Scripts Active Proair Respiclick Inh (Albuterol Sulfate) 90 Mcg/Act Aerp 2 Puff INH Q4-6H PRN Review of Systems Except as stated in HPI: all other systems reviewed are Neg Physical Exam Narrative GENERAL: Well-nourished, well-developed male patient, Afebrile. SKIN: Focused skin assessment warm/dry. Patient has superficial lacerations to bilateral anterior wrist. No active bleeding. HEAD: Normocephalic. Atraumatic. EYES: No scleral icterus. No injection or drainage. NECK: Supple, trachea midline. No JVD or lymphadenopathy. CARDIOVASCULAR: Regular rate and rhythm without murmurs, gallops, or rubs. RESPIRATORY: Breath sounds equal bilaterally. No accessory muscle use. Lungs sounds clear to auscultation. GASTROINTESTINAL: Abdomen soft, non-tender, nondistended. MUSCULOSKELETAL: No cyanosis, or edema. BACK: Nontender without obvious deformity. No CVA tenderness. Data Data Last Documented VS Vital Signs Date Time Temp Pulse Resp B/P Pulse Ox O2 Delivery O2 Flow Rate FiO2 7/23/17 11:35 100 Room Air 05/16/17 11:16 98.7 86 15 154/94 Orders Psych Screen (05/16/17 11:25) Wound Care (05/16/17 11:25) Tetanus/Diphtheria Tox Adult (Tetanus/Di (05/16/17 11:30) Diet Regular Basic (05/16/17 Lunch) MDM Medical Decision Making Medical Screen Exam Complete: Yes Emergency Medical Condition: Yes Medical Record Reviewed: Yes Differential Diagnosis Suicidal ideation versus bipolar disorder versus depression versus anxiety versus polysubstance abuse Narrative Course 57-year-old male presents back to the emergency department after being discharged. He states he is suicidal. He apparently attempted to cut his wrist outside the hospital with a box blank machine operator. Lacerations are superficial. His tetanus immunization is updated. I reviewed labs that were done yesterday at 1535. CBC is unremarkable. CMP is unremarkable. CK is 248. Magnesium 2.5. Troponin is less than 0.02. TSH is 1.5. Urine drug screen is positive for cocaine. Salicylate level was 6.0. Acetaminophen level less than 2.0. Alcohol level is 123. Coags were unremarkable. Wound care is completed and dressings are applied to bilateral wrists. The patient is medically cleared for psychiatric screening and disposition. Mental health screening discussed with the patient. Psychiatric screen ordered. Psychiatrist, Dr. Sanders, saw patient and he states the patient does not meet criteria for inpatient psychiatric admission at this time. He would like patient to be discharged. Diagnosis Primary Impression: Suicidal ideation Referrals: [facility] Patient Instructions: General Instructions, Suicide Prevention for Adults (ED) Additional Instructions: Patient is medically cleared for psychiatric screening and disposition. Med/Other Pt SpecificInfo: No Change to Meds Condition: Stable Mee Alanis ANIL May 16, 2017 11:05
[2017-05-16 11:16] VITALS: BP 154/94; PULSE 86; RESP 15; TEMP 98.7; O2SAT 96
[2017-05-16] MEDS ORDERED: TETANUS/DIPHTHERIA TOXOID ADULT 0.5 ML VIAL IM ONE (11:30)
--- NOTE | 2017-05-16 13:59 | PD.PSY.CON ---
Provisional Diagnosis Admission Date [place] I. Cocaine and alcohol use disorder, r/o malingering [place] II. Unspecified personality disorder, rule out antisocial personality disorder [place] III. HTN [place] IV. History of self cutting, impulsive behavior, history of incarcerations [place] V. 55 History of Present Illness Service Psychiatry Consult Requested By Primary Care Physician Virgil Gardner MD HPI The patient is a 57-year-old man, homeless, single, employed in a restaurant, with self-reported psychiatric history of schizophrenia, psychiatric verbalizations, no active outpatient psychiatric care, no psychiatric treatment, he reports over 30 suicidal/para suicidal attempts, cocaine and alcohol use disorder, history of incarcerations due to drug-related issues, medical history hypertension, who presents to the emergency department for suicidal ideation. Patient was discharged this morning after being seen for the same reason by a nurse practitioner Lupe Zamarripa, he documentation was reviewed. As per ER notes He apparently went outside the hospital and use a wooden box maker and attempted to cut his wrist. The patient was found and brought back to the emergency department. The patient states that he is suicidal and does not want to live. He reports history of bipolar disorder, but is not currently on any medications. On psychiatric evaluation patient is found in his bed, he is calm, cooperative, stating that he has been hearing voices for 5 years inside his head. He says that the voices are telling him to cut himself and to harm himself. When he was asked to describe the voices, he says "I don' t know, they are always in my head". He says that he has being in psychotropics in the past, but he doesn't remember the name of the medication that he has been on. He has been over a year without medications. Reports daily use of alcohol and cocaine. When patient was asked about his stressors, he says that he recently became homeless. Review of Systems Constitutional: DENIES: Diaphoretic episodes, Fatigue, Fever, Weight gain, Weight loss, Chills, Dizziness, Change in appetite, Night Sweats Eyes: DENIES: Blurred vision, Diplopia, Eye inflammation, Eye pain, Vision loss , Photosensitivity, Double Vision Ears, nose, mouth, throat: DENIES: Tinnitus, Hearing loss, Vertigo, Nasal discharge, Oral lesions, Throat pain, Hoarseness, Ear Pain, Running Nose, Epistaxis, Sinus Pain, Toothache, Odynophagia Respiratory: DENIES: Apneas, Cough, Snoring, Wheezing, Hemoptysis, Sputum production, Shortness of breath Cardiovascular: DENIES: Chest pain, Palpitations, Syncope, Dyspnea on Exertion , PND, Lower Extremity Edema, Orthopnea, Claudication Musculoskeletal: DENIES: Joint pain, Muscle aches, Stiffness, Joint Swelling, Back pain, Neck pain Hematologic/lymphatic: DENIES: Bruising, Lymphadenopathy Immunologic/allergic: DENIES: Eczema, Urticaria Psychiatric: DENIES: Anxiety, Confusion, Mood changes, Depression, Hallucinations, Agitation, Suicidal Ideation, Homicidal Ideation, Delusions Past Family Social History Coded Allergies: No Known Allergies (Unverified , 05/15/17) Active Scripts Albuterol Powder Inh (Proair Respiclick Inh)90 Mcg/Act Aerp2 Puff INH Q4-6H PRN (SHORTNESS OF BREATH) #1 INHALER Ref 0 Prov:Brittany Quezada MD 03/03/17 Discontinued Scripts Doxycycline Hyclate 100 Mg [id number] Mg PO BID #20 CAP Ref 0 Prov:Brittany Quezada MD 03/03/17 Methylprednisolone Dosepak (Medrol Dosepak)4 Mg Dspk4 Mg PO DIRECTED #1 DSPK Ref 0 Per Pharmacist direction Prov:Brittany Quezada MD 03/03/17 Family History He denies family psychiatric history Social History Patient was born and raised in [place], he is single, he works in a restaurant, his highest level of education is 5 grade, but he is illiterate, patient reports multiple incarcerations, the longest time in snf was 9 months, " usually for drug related issues" Patient's Strengths (min. 2) Verbal communication Physical Exam Vital Signs Vital Signs Date Time Temp Pulse Resp B/P Pulse Ox O2 Delivery O2 Flow Rate FiO2 05/16/17 11:35 100 Room Air 05/16/17 11:16 98.7 86 15 154/94 Mental Status Examination Appearance man, disheveled, poor hygiene, calm, superficially cooperative Speech: Unremarkable Memory: Unremarkable Thought Process: Logical Thought Content: Unremarkable Hallucination Type: None Suicidal Ideation: Yes Previous Suicide Attempts: Yes Homicidal Ideation: No Judgment: Poor Affect: Good Mood: Appropriate Motor Activity: Normal gait Assessment & Plan Problem List: (1) Cocaine abuse Assessment & Plan: At the moment of this evaluation the patient does not meet criteria for psychiatric admission at this moment. Even though there multiple identified chronic risks of suicidality and impulsive behavior such as continuous use of cocaine and alcohol, previous suicidal attempts, history of self cutting behavior, history of incarcerations, noncompliance with psychotropics and admission would not be therapeutic. I completely agree and concur more with previous documentation assessment and plan of Ms. Lupe Zamarripa. Self reported psychiatric symptoms are really vague and inconsistent, but at the same time they seem to be chronic and most probably related with sustained use of cocaine and alcohol. His self cutting behavior is most probably related and secondary with underlying character structure and antisocial behavior. There are several factors of patient psychiatric history are consistent with a personality pathology, most probably antisocial personality disorder. Patient does not benefit of psychiatric admission. He would benefit of a detox/rehabilitation program and he has already been provided with referral for services. Psychoeducation and brief supportive psychotherapy provided. Patient will be discharged. ICD Code: F14.10 Assessment & Plan Estimated LOS: Rylan Enriquez MD May 16, 2017 13:58
== END 2017-05-16 16:32 | disposition home or self-care (01) ==
LOC: NEPD 10:51
DX: S61.511A Laceration without foreign body of right wrist, initial encounter (principal); S61.512A Laceration without foreign body of left wrist, initial encounter; R45.851 Suicidal ideations; F31.9 Bipolar disorder, unspecified; J44.9 Chronic obstructive pulmonary disease, unspecified; I10 Essential (primary) hypertension; J45.909 Unspecified asthma, uncomplicated; F17.210 Nicotine dependence, cigarettes, uncomplicated; Z23 Encounter for immunization; W27.8XXA Contact with other nonpowered hand tool, initial encounter; Y93.89 Activity, other specified; Y92.9 Unspecified place or not applicable; Y99.8 Other external cause status
CPT/HCPCS: 90471; 90714

== ENCOUNTER 2017-05-16 21:23 | Emergency (ER) | payer OTHER ==
[~2017-05-16] VITALS: Ht 182.9 cm; Wt 80.0 kg
[2017-05-16 21:53] VITALS: BP 141/91; PULSE 94; RESP 16; TEMP 98.6; O2SAT 97
--- NOTE | 2017-05-16 22:10 | PD ---
HPI Chief Complaint: Psychiatric Symptoms Time Seen by Provider: 22:07 Travel History International Travel<30 days: No Contact w/Intl Traveler<30days: No Traveled to known affect area: No History of Present Illness HPI Patient comes back to the emergency Department under [place] act by police for suicidal ideations. Patient reports he was trying to jump off the bridge when he got [place] acted. Patient states he he told psychiatrist previously to not release him that he wanted to be placed somewhere because he has good insurance. Patient denies any medical complaints or concerns at this time. Denies any chest pain, nausea, vomiting, fevers, or headache. Denies anything making symptoms better or worse. PFSH Past Medical History Asthma: Yes Depression: Yes COPD: Yes Diminished Hearing: No Hypertension: Yes Past Surgical History Eye Surgery: Yes Other Surgery: Yes (HAND SURGERY) Social History Alcohol Use: Yes (daily) Tobacco Use: Yes (one pack per day) Substance Use: Yes (cocaine occasionally) Allergies-Medications (Allergen,Severity, Reaction): Coded Allergies: No Known Allergies (Unverified , 05/15/17) Reported Meds & Prescriptions Reported Meds & Active Scripts Active Proair Respiclick Inh (Albuterol Sulfate) 90 Mcg/Act Aerp 2 Puff INH Q4-6H PRN Review of Systems Except as stated in HPI: all other systems reviewed are Neg Physical Exam Narrative GENERAL: Well-developed, well nourished, in no acute distress, and non-ill appearing. SKIN: Focused skin assessment warm and dry. HEAD: Atraumatic. Normocephalic. EYES: Pupils equal and round. EOMI. No scleral icterus. No injection or drainage. ENT: No nasal bleeding or discharge. Mucous membranes pink and moist. NECK: Trachea midline. Supple. No nuclear rigidity. CARDIOVASCULAR: Regular rate and rhythm. No murmur appreciated. RESPIRATORY: No accessory muscle use. No respiratory distress. Clear to auscultation. Breath sounds equal bilaterally. GASTROINTESTINAL: Abdomen soft, non-tender, nondistended, and no guarding. Hepatic and splenic margins not palpable. Normal bowel sounds 4. No pulsatile mass. MUSCULOSKELETAL: No obvious deformities. No clubbing. No cyanosis. No edema. Full range of motion. NEUROLOGICAL: Awake and alert. No obvious cranial nerve deficits. Motor grossly within normal limits. Normal speech. PSYCHIATRIC: Appropriate mood and affect; insight and judgment normal. Data Data Last Documented VS Vital Signs Date Time Temp Pulse Resp B/P Pulse Ox O2 Delivery O2 Flow Rate FiO2 05/16/17 21:53 98.6 94 16 141/91 97 Orders Psych Screen (05/16/17 22:03) MDM Medical Decision Making Medical Screen Exam Complete: Yes Emergency Medical Condition: Yes Differential Diagnosis Homicidal, suicidal, substance abuse, malingering, other Narrative Course Patient was seen and examined. Labs were reviewed from yesterday. No need for additional labs at this time. Patient medically cleared for further treatment and evaluation by psych. Final disposition per psych. Diagnosis Primary Impression: Medical clearance for psychiatric admission Condition: Stable Cristiano Zhang May 16, 2017 22:10
[2017-05-17 02:14] VITALS: BP 142/86; PULSE 101; RESP 20; TEMP 98.4; O2SAT 98
[2017-05-17 06:16] VITALS: BP 152/99; PULSE 87; RESP 20; TEMP 98.4; O2SAT 97
== END 2017-05-17 11:58 ==
LOC: NEPD 21:23 → NEPJ 05-17 11:58
DX: R45.851 Suicidal ideations (principal); F32.9 Major depressive disorder, single episode, unspecified; J45.909 Unspecified asthma, uncomplicated; J44.9 Chronic obstructive pulmonary disease, unspecified; I10 Essential (primary) hypertension; F17.200 Nicotine dependence, unspecified, uncomplicated
CPT/HCPCS: 99284

== ENCOUNTER 2017-05-29 04:33 | Emergency (ER) | payer OTHER ==
[~2017-05-29] VITALS: Ht 172.7 cm; Wt 95.0 kg
[~2017-05-29 04:33] MED LIST changes: -DOXY100C PO; -MEDR4PAK PO
[2017-05-29 04:45] VITALS: BP 154/94; PULSE 115; RESP 20; TEMP 98.9; O2SAT 95
--- NOTE | 2017-05-29 04:54 | PD ---
HPI Chief Complaint: Psychiatric Symptoms Time Seen by Provider: 04:40 Travel History International Travel<30 days: No Contact w/Intl Traveler<30days: No Traveled to known affect area: No History of Present Illness HPI 57-year-old male with history of bipolar disorder presents under [place] act initiated by the [employer]. The patient reports that he has been feeling depressed, he has been having auditory hallucinations and today he tried to jump in front of traffic. His friend called the police and he was placed under [place] act. The patient reports that he has been unable to afford his psychiatric medications, he does not remember the name of the medications, and he recently lost his job. He admits to drinking some beer today. He admits to frequent cocaine use. He has no other complaints at this time. [facility] Past Medical History Asthma: Yes Depression: Yes COPD: Yes Diminished Hearing: No Hypertension: Yes Past Surgical History Eye Surgery: Yes Other Surgery: Yes (HAND SURGERY) Social History Alcohol Use: Yes (daily) Tobacco Use: Yes (one pack per day) Substance Use: Yes (cocaine occasionally) Allergies-Medications (Allergen,Severity, Reaction): Coded Allergies: No Known Allergies (Unverified , 05/29/17) Reported Meds & Prescriptions Reported Meds & Active Scripts Active Proair Respiclick Inh (Albuterol Sulfate) 90 Mcg/Act Aerp 2 Puff INH Q4-6H PRN Review of Systems Except as stated in HPI: all other systems reviewed are Neg Physical Exam Narrative GENERAL: The developed well-nourished male in no acute distress SKIN: Warm and dry. HEAD: Atraumatic. Normocephalic. EYES: Pupils equal and round. No scleral icterus. No injection or drainage. ENT: No nasal bleeding or discharge. Mucous membranes pink and moist. NECK: Trachea midline. No JVD. CARDIOVASCULAR: Regular rate and rhythm. No murmur appreciated. RESPIRATORY: No accessory muscle use. Clear to auscultation. Breath sounds equal bilaterally. GASTROINTESTINAL: Abdomen soft, mild epigastric tenderness without guarding. MUSCULOSKELETAL: No obvious deformities. No clubbing. No cyanosis. No edema. NEUROLOGICAL: Awake and alert. No obvious cranial nerve deficits. Motor grossly within normal limits. Normal speech. PSYCHIATRIC: Appropriate mood and affect; insight and judgment normal. Data Data Last Documented VS Vital Signs Date Time Temp Pulse Resp B/P Pulse Ox O2 Delivery O2 Flow Rate FiO2 05/29/17 04:45 98.9 115 20 154/94 95 Orders Complete Blood Count With Diff (05/29/17 04:52) Comprehensive Metabolic Panel (05/29/17 04:52) Lipase (05/29/17 04:52) Drug Screen, Random Urine (05/29/17 04:52) Alcohol (Ethanol) (05/29/17 04:52) Labs Laboratory Tests Test 05/29/17 05:00 White Blood Count 9.3 TH/MM3 Red Blood Count 5.42 MIL/MM3 Hemoglobin 15.2 GM/DL Hematocrit 46.8 % Mean Corpuscular Volume 86.3 FL Mean Corpuscular Hemoglobin 28.0 PG Mean Corpuscular Hemoglobin 32.5 % Concent Red Cell Distribution Width 14.9 % Platelet Count 319 TH/MM3 Mean Platelet Volume 8.2 FL Neutrophils (%) (Auto) 69.1 % Lymphocytes (%) (Auto) 23.0 % Monocytes (%) (Auto) 6.8 % Eosinophils (%) (Auto) 0.3 % Basophils (%) (Auto) 0.8 % Neutrophils # (Auto) 6.4 TH/MM3 Lymphocytes # (Auto) 2.1 TH/MM3 Monocytes # (Auto) 0.6 TH/MM3 Eosinophils # (Auto) 0.0 TH/MM3 Basophils # (Auto) 0.1 TH/MM3 CBC Comment DIFF FINAL Differential Comment Sodium Level 136 MEQ/L Potassium Level 3.8 MEQ/L Chloride Level 100 MEQ/L Carbon Dioxide Level 21.7 MEQ/L Anion Gap 14 MEQ/L Blood Urea Nitrogen 12 MG/DL Creatinine 1.12 MG/DL Estimat Glomerular Filtration 82 ML/MIN Rate Random Glucose 100 MG/DL Calcium Level 9.3 MG/DL Total Bilirubin 0.4 MG/DL Aspartate Amino Transf 33 U/L (AST/SGOT) Alanine Aminotransferase 31 U/L (ALT/SGPT) Alkaline Phosphatase 77 U/L Total Protein 9.1 GM/DL Albumin 4.5 GM/DL Lipase 125 U/L Ethyl Alcohol Level 72 MG/DL [facility] Medical Decision Making Medical Screen Exam Complete: Yes Emergency Medical Condition: Yes Medical Record Reviewed: Yes Differential Diagnosis Bipolar disorder, schizophrenia, acute psychosis, substance induced mood disorder Narrative Course 57-year-old male presents under [place] act for psychiatric evaluation. On examination he has mild epigastric tenderness. Therefore basic lab work is been ordered. Mental health screening discussed with the patient. Psychiatric screen ordered. The patient is medically clear for psychiatric disposition. Armaan Martinez May 29, 2017 04:54
[2017-05-29 06:18] LABS: AUTOMATED NEUTROPHIL # 6.4 TH/MM3 (1.8-7.7); BASOPHIL # 0.1 TH/MM3 (0-0.2); BASOPHIL % 0.8 % (0.0-2.0); EOSINOPHIL % 0.3 % (0.0-4.0); HEMATOCRIT 46.8 % (39.0-51.0); HEMO FLAGS DIFF FINAL; LYMPHOCYTE # 2.1 TH/MM3 (1.0-4.8); MEAN CELL VOLUME 86.3 FL (80.0-100.0); MEAN CORPUSCULAR HGB CONC 32.5 % (32.0-36.0); MONO % 6.8 % (0.0-8.0); NEUT % 69.1 % (16.0-70.0); PLATELET COUNT 319 TH/MM3 (150-450); RED BLOOD COUNT 5.42 MIL/MM3 (4.50-5.90); RED CELL DISTRIBUTION WIDTH 14.9 % (11.6-17.2); WHITE BLOOD COUNT 9.3 TH/MM3 (4.0-11.0)
[2017-05-29 06:38] LABS: ALKALINE PHOSPHATASE 77 U/L (45-117); ALT (GPT) 31 U/L (12-78); TOTAL BILIRUBIN ADULT 0.4 MG/DL (0.2-1.0)
[2017-05-29 06:52] LABS: ANION GAP 14 MEQ/L (5-15); AST (GOT) 33 U/L (15-37); BICARBONATE 21.7 MEQ/L (21.0-32.0); BLOOD UREA NITROGEN 12 MG/DL (7-18); CHLORIDE 100 MEQ/L (98-107); GLOMERULAR FILTRATION RATE 82 ML/MIN (>89); POTASSIUM 3.8 MEQ/L (3.5-5.1); SODIUM (NA) 136 MEQ/L (136-145)
[2017-05-29 08:58] VITALS: BP 134/79; PULSE 101; RESP 20; O2SAT 96
[2017-05-29 14:19] VITALS: BP 130/70; PULSE 80; RESP 18; O2SAT 100
[2017-05-29 15:28] VITALS: BP 130/70
--- NOTE | 2017-05-29 15:43 | PD ---
History of Present Illness Chief Complaint: Psychiatric Symptoms Time Seen by Provider: 15:00 Travel History International Travel<30 Days: No Contact w/Intl Traveler<30days: No Known affected area: No Legal Status Legal Status: [place] Act [place] Act Signed By: Ayaz Wolf History of Present Illness: History of Present Illness HPI 57-year-old male with a self reported history of bipolar disorder, cocaine and alcohol use disorder presents under [place] act initiated by the Police Department. The report alleges that he wanted to jump into traffic to kill himself. He advised that he was homeless and was just fired from his job and did not want to live any longer. He did not make any attempt to harm himself. He is known to [facility] [place]ry and has had 3 visits in the past month for reported suicidal ideation in context of cocaine intoxication. The patient was monitored and he did not present any behavioral concerns and no suicidality. Current toxicology is positive for cocaine with BAL of 87. The patient is seen in [facility] with mental health with Benjamin Wooten present. Asleep but awakens easily. He is vague regarding his symptoms and provides conflicting information at times. He states that he tried to commit suicide by jumping in front of a truck. Then he stated that he attempted to jump. He also reports that he has been depressed for several days and has been without medication. He then states that he was just released from [facility] yesterday and that he has the prescription that they gave him at his friend's house. Apparently he was taken to the [facility] from [facility] but he did not have the seven dollars that they require. He admits to using crack and alcohol and has no desire to abstain from using these substances. The patient does not present any indication that he is psychotic and there is no indication of any nery or hypomania.He denies suicidal ideation at this time and stated that he would be fine if he were to get a voucher for the Info for 3 days and he plans on calling either [facility] or [facility] on Wednesday. He is aware that he must remain substance free in order to be accepted at both. [facility] Past Medical History Asthma: Yes Depression: Yes COPD: Yes Diminished Hearing: No Hypertension: Yes Past Surgical History Eye Surgery: Yes Other Surgery: Yes (HAND SURGERY) Psychiatric History Psychiatric History Hx Psychiatric Treatment: Reports hx of bipolar disorder . not in tretament History of Inpatient Treatment: Yes Guns or firearms in home: No Social History Single male. homeless. has worked as a cook. Hx Alcohol Use: Yes (daily) Hx Tobacco Use: Yes (one pack per day) Hx Substance Use: Yes Substance Use Type: Alcohol, Nicotine/Cigarettes, Cocaine Hx of Substance Use Treatment: Yes Family Psychiatric History Negative Allergies-Medications (Allergen,Severity, Reaction): Coded Allergies: No Known Allergies (Unverified , 05/29/17) Reported Meds & Prescriptions Reported Meds & Active Scripts Active Proair Respiclick Inh (Albuterol Sulfate) 90 Mcg/Act Aerp 2 Puff INH Q4-6H PRN Review of Systems Except as stated in HPI: all other systems reviewed are Neg Exam Alert: Yes [place]: Person (ox4) Mood: Calm Affect: Appropriate Speech: Clear, Logical Eye Contact: Normal Memory Intact: Comment (not impaired) Hallucinations: Other (Negative) Delusions: No Suicidal: Ideation (Deneis any) Homicidal: Ideation (Deneis any) Insight/Judgement Poor. not impaired. MDM Medical Decision Making Medical Record Reviewed: Yes Assessment/Plan 57-year-old male with a self reported history of bipolar disorder, cocaine and alcohol use disorder presents under [place] act initiated by the Police Department. The report alleges that he wanted to jump into traffic to kill himself. The patient does not present any acute psychiatric symptoms and appears to be fabricating his symptoms as we go along in the examination. Once he is provided with the Info resources he denies suicidality or any other psychiatric symptom. The patient is clearly malingering his symptoms in order to obtain fci. He is provided psychoeducation and advised to remain abstinent from substances. [facility] Orders Complete Blood Count With Diff (05/29/17 04:52) Comprehensive Metabolic Panel (05/29/17 04:52) Lipase (05/29/17 04:52) Drug Screen, Random Urine (05/29/17 04:52) Alcohol (Ethanol) (05/29/17 04:52) Diet Regular Basic (05/29/17 Breakfast) Diet Regular Basic (05/29/17 Lunch) Psych Screen (05/29/17 13:29) Results Vital Signs Date Time Temp Pulse Resp B/P Pulse Ox O2 Delivery O2 Flow Rate FiO2 05/29/17 15:28 130/70 05/29/17 14:19 80 18 130/70 100 Room Air 05/29/17 08:58 101 20 134/79 96 Room Air 05/29/17 04:45 98.9 115 20 154/94 95 Laboratory Tests Test 05/29/17 05:00 White Blood Count 9.3 Red Blood Count 5.42 Hemoglobin 15.2 Hematocrit 46.8 Mean Corpuscular Volume 86.3 Mean Corpuscular Hemoglobin 28.0 Mean Corpuscular Hemoglobin 32.5 Concent Red Cell Distribution Width 14.9 Platelet Count 319 Mean Platelet Volume 8.2 Neutrophils (%) (Auto) 69.1 Lymphocytes (%) (Auto) 23.0 Monocytes (%) (Auto) 6.8 Eosinophils (%) (Auto) 0.3 Basophils (%) (Auto) 0.8 Neutrophils # (Auto) 6.4 Lymphocytes # (Auto) 2.1 Monocytes # (Auto) 0.6 Eosinophils # (Auto) 0.0 Basophils # (Auto) 0.1 CBC Comment DIFF FINAL Differential Comment Sodium Level 136 Potassium Level 3.8 Chloride Level 100 Carbon Dioxide Level 21.7 Anion Gap 14 Blood Urea Nitrogen 12 Creatinine 1.12 Estimat Glomerular Filtration 82 Rate Random Glucose 100 Calcium Level 9.3 Total Bilirubin 0.4 Aspartate Amino Transf 33 (AST/SGOT) Alanine Aminotransferase 31 (ALT/SGPT) Alkaline Phosphatase 77 Total Protein 9.1 Albumin 4.5 Lipase 125 Ethyl Alcohol Level 72 Diagnosis Primary Impression: Polysubstance abuse Additional Impression: Cocaine abuse Psychiatrically Cleared: Yes Departure Forms: Tests/Procedures Patient Instructions: General Instructions Additional Instructions: see out patient resource packets . Come to ER if symtoms reappear Med/ Other Pt Specific Info: No Meds Exist/No RX given Disposition: 01 DISCHARGE HOME Condition: Stable Problem Qualifiers Lupe Reynolds May 29, 2017 15:43
[2017-05-29 15:57] LABS: AMPHETAMINE, URINE NEG (NEG); BARBITURATES, URINE NEG (NEG); COCAINE, URINE POS (NEG)
== END 2017-05-29 15:48 | disposition home or self-care (01) ==
LOC: NEPD 04:33 → NEPJ 15:48
DX: Z02.89 Encounter for other administrative examinations (principal); F31.9 Bipolar disorder, unspecified; F19.10 Other psychoactive substance abuse, uncomplicated; F14.10 Cocaine abuse, uncomplicated; F10.10 Alcohol abuse, uncomplicated; F17.210 Nicotine dependence, cigarettes, uncomplicated; I10 Essential (primary) hypertension; J44.9 Chronic obstructive pulmonary disease, unspecified; J45.909 Unspecified asthma, uncomplicated
CPT/HCPCS: 80053; 80307; 83690; 85025; 99285